=== PATIENT | female | born 1980 | race Caucasian/White ===

== ENCOUNTER 2018-07-28 13:14 | Outpatient (REF) | payer MEDICAID, SELFPAY ==
--- NOTE | 2018-07-28 11:00 | PAPFT_PTH ---
PATIENT: DEXTER QUINTEROS LOC: [facility] U#:[id number] AGE/SX: 38/F ROOM: RE07/28/[address]: XIOMARA Khan : 1980 BED: DIS: 07/28/2018 SPEC #: [id number] RECD: 07/28/18 18:23 STATUS: CHER REQ #: [id number] RICHARD: 07/28/18 11:[address]: Zoila Richard DEPT: [facility] Cytology RECD BY: Anita Rodrigues ENTERED: 07/28/18 18:24 SP TYPE: PAPFT OT DR: Kathryn Ramirez MD Tissues: 1 - CX/ENDOCX FOR PAP SMEARS Procedures: PAP THIN PREP/[facility] Screening HPV DNA PROBE Comments: [id number]
[2018-07-31 16:01] LABS: Chlamydia Result Negative; GC Result Negative; Specimen Description CERVIX
== END 2018-07-28 13:34 ==
LOC: LBN 13:14
PROVIDERS: PCP Internal Medicine; Visit Provider Nurse Practitioner Family
DX: Z11.3 Encounter for screening for infections with a predominantly sexual mode of transmission (principal); Z12.4 Encounter for screening for malignant neoplasm of cervix; Z11.51 Encounter for screening for human papillomavirus (HPV)
CPT/HCPCS: 87491; 87591; 88142; 87624

== ENCOUNTER 2018-08-25 15:48 | Outpatient (REF) | payer MEDICAID, SELFPAY ==
--- NOTE | 2018-08-25 14:40 | ENDO_PTH ---
PATIENT: DEXTER QUINTEROS LOC: [facility] U#:[id number] AGE/SX: 38/F ROOM: RE08/25/[address]: Chani Johnson MD : 1980 BED: DIS: 08/25/2018 SPEC #: [id number] RECD: 08/25/18 16:12 STATUS: CHER RE #: [id number] RICHARD: 08/25/18 14:[address]: Chani Johnson DEPT: Surgical Specimen RECD BY: Anita Rodrigues ENTERED: 08/25/18 16:13 SP TYPE: Endo OTHR DR: Kathryn Ramirez MD Tissues: 1 - ENDOCERVICAL BX/CURRETTE 2 - CERVICAL BIOPSY Procedures: GROSS AND MICRO LEVEL 4 Comments: [id number]
== END 2018-08-25 16:08 ==
LOC: LBN 15:48
PROVIDERS: PCP Internal Medicine; Visit Provider Obstetrics & Gynecology
DX: N87.1 Moderate cervical dysplasia (principal); N88.8 Other specified noninflammatory disorders of cervix uteri; R87.810 Cervical high risk human papillomavirus (HPV) DNA test positive; R87.613 High grade squamous intraepithelial lesion on cytologic smear of cervix (HGSIL)
CPT/HCPCS: 88305

== ENCOUNTER 2018-09-04 13:17 | Outpatient (CLI) | payer MEDICAID, SELFPAY ==
[2018-09-05 10:54] LABS: HBs Antibody, Quant 250.7 mIU/mL; Hepatitis B Surface Ab Positive; Hepatitis B Surface Ag Negative (NEGAT)
[2018-09-05 11:26] LABS: Measles IgG Antibody Positive; Mumps Antibody IgG Positive (Negative); Varicella IgG Antibody Positive
[2018-09-05 12:27] LABS: Rubella IgG Ab (UVM) Positive
== END 2018-09-04 13:37 ==
PROVIDERS: PCP Internal Medicine; Visit Provider Internal Medicine
DX: Z01.84 Encounter for antibody response examination (principal); Z11.59 Encounter for screening for other viral diseases
CPT/HCPCS: 86706; 86787; 87340; 86735; 86762; 86765

== ENCOUNTER 2019-05-15 13:55 | Outpatient (REF) | payer MEDICAID, SELFPAY ==
--- NOTE | 2019-05-15 13:00 | PAPFT_PTH ---
PATIENT: DEXTER QUINTEROS LOC: [facility] U#:[id number] AGE/SX: 39/F ROOM: RE05/15/[address]: XIOMARA Khan : 1980 BED: DIS: 05/15/2019 SPEC #: [id number] RECD: 05/15/19 18:00 STATUS: CHER RENika #: [id number] RICHARD: 05/15/19 13:[address]: Zoila Richard DEPT: [facility] Cytology RECD BY: Anita Rodrigues ENTERED: 05/15/19 18:00 SP TYPE: PAPFT IVAN DR: Unknown,Unknown Tissues: 1 - CX/ENDOCX FOR PAP SMEARS Procedures: PAP THIN PREP/[facility] Screening HPV DNA PROBE Comments: [id number]
== END 2019-05-15 14:15 ==
LOC: LBN 13:55
PROVIDERS: Visit Provider Nurse Practitioner Family
DX: Z12.4 Encounter for screening for malignant neoplasm of cervix (principal); Z11.51 Encounter for screening for human papillomavirus (HPV)
CPT/HCPCS: 88142; 87624